=== PATIENT | female | born 1965 | race African-American/Black ===

== ENCOUNTER 2022-12-31 09:37 | Inpatient (IN) ==
--- NOTE | 2022-12-31 10:00 | DR.URIAD ---
HPI Time Seen Time Seen by Provider: 12/31/22 09:58 Complaint Chief Complaint Doctors Comments: BROUGHT IN BY EMS WITH C/O SOB. EMS STTED THAT 02 SAT WAS 89 AT THE SCENE AND THEY PUT HER ON 3 LITERS OF O2 AND SAT INCREASED TO 98. ROS Review of Systems Constitutional: Weakness and Other (SHORTNESS OF BREATH) Eyes: No Symptoms Reported ENTM: No Symptoms Reported Respiratoy: Short of Breath Cardiovascular: No Symptoms Reported Gastrointestinal/Abdominal: No Symptoms Reported Genitourinary: No Symptoms Reported Neurological: No Symptoms Reported Musculoskeletal: Other (GENERALYZED WEAKNESS) Integumentary: Other (STASIS DERMATITIS) Hematologic/Lymphatic: No Symptoms Reported Endocrine: No Symptoms Reported PE Vital Signs Vitals: Vital Signs Temperature 98.2 F Pulse Rate 94 Pulse Rate 93 Pulse Rate 95 Pulse Rate 95 Pulse Rate 92 Pulse Rate 97 Pulse Rate 92 Pulse Rate 92 Pulse Rate 96 Pulse Rate 90 Pulse Rate 95 Pulse Rate 92 Pulse Rate 96 Pulse Rate 91 Pulse Rate 93 Pulse Rate 94 Pulse Rate 93 Pulse Rate 96 Pulse Rate 93 Pulse Rate 93 Pulse Rate 93 Pulse Rate 94 Pulse Rate 100 Respiratory Rate 18 Respiratory Rate 14 Respiratory Rate 7 Respiratory Rate 12 Respiratory Rate 0 Respiratory Rate 13 Respiratory Rate 20 Respiratory Rate 16 Respiratory Rate 24 Respiratory Rate 10 Respiratory Rate 13 Respiratory Rate 10 Respiratory Rate 17 Respiratory Rate 6 Respiratory Rate 0 Respiratory Rate 0 Respiratory Rate 15 Respiratory Rate 16 Respiratory Rate 18 Respiratory Rate 19 Respiratory Rate 24 Blood Pressure 144/86 Blood Pressure 149/71 Blood Pressure 156/84 Blood Pressure 132/87 Blood Pressure 162/80 Blood Pressure 157/98 O2 Sat by Pulse Oximetry 98 O2 Sat by Pulse Oximetry 96 O2 Sat by Pulse Oximetry 100 O2 Sat by Pulse Oximetry 100 O2 Sat by Pulse Oximetry 100 O2 Sat by Pulse Oximetry 100 O2 Sat by Pulse Oximetry 100 O2 Sat by Pulse Oximetry 100 O2 Sat by Pulse Oximetry 97 O2 Sat by Pulse Oximetry 100 O2 Sat by Pulse Oximetry 97 O2 Sat by Pulse Oximetry 100 O2 Sat by Pulse Oximetry 92 O2 Sat by Pulse Oximetry 95 O2 Sat by Pulse Oximetry 90 O2 Sat by Pulse Oximetry 76 O2 Sat by Pulse Oximetry 90 General Limitations: Physical Limitation (POOR AMBULATION DUE TO FATIGUE) General Appearance: In Distress (MODERATE DISTRESS) Head Head Exam: Normal Inspection Eyes Eye exam: Normal Appearance ENT ENT Exam: Normal Exam and Normal Oropharynx External Ear Exam: Normal External Inspection TM/Canal Exam: Bilateral: Normal Nose Exam: Normal Nose Exam Nasal Speculum Exam: Bilateral: Normal Mouth Exam: Normal Inspection Throat Exam: Normal Inspection Neck Neck Exam: Normal Inspection Chest Chest Inspection: Normal Inspection Respiratory Respiratory Exam: Normal Lung Sounds Bilat Respiratory Exam: Bilateral: Clear to Auscultation Cardiovascular Cardiovascular Exam: Regular Rate and Normal Rhythm Abdominal Exam Abdominal Exam: Normal Inspection and Normal Bowel Sounds Extremeties Extremities Exam: Normal Inspection and Full ROM Back Back Exam: Normal Inspection Neurologic Neurological Exam: Alert Psychiatric Psychiatric Exam: Depressed Skin Skin Exam: Other (STASIS DERMATITIS) MDM Differential Diagnosis Differential Diagnosis: Pneumonia and URI COURSE Treatment Treatment: PQTINT REMQINED RELQTIVELY STABLE DURING ER EVALUATION. HAD AFIB ON EKG,CARDIAC ENZYMES WERE NORMAL,SLIGHTLY ELEVATED BNP OF 210 AND WAS POSITIVE FOR COVID. CHEST XRAY SHOED CRDIOMEGALY AND POSSIBLE EVOLVING RML PNEUMONIA. CT OF ABDOMEN AND PELVIS SHOWED OVERAL VOLUME OVERLOAD INCLUDING ASCITES,PLEURAL EFFUSIONS, AND DIFFUSE ANASARCA. POSSIBLE EVOLVING RML PNEUMONIA AND UMBILCAL HERNIA WITHOUT OBSTRUCTIONS. SPOKE TO DR BALDWIN AT 1435 AND HE STATED TO START PATIENT ON REMDESIVIR,GENT NEBS AND FUROSEMIDE 40MG IV Q 12 X 2. PATIENT WAS NOTIFIED OF THE PLAN TO ADMIT AND WASAGREABLE TO THE ADMISSION. ROR Labs Reviewed Laboratory Results Reviewed?: Yes 12/31/22 10:18 12/31/22 10:18 Laboratory: WBC 5.2 X10^3/uL (3.6-10.0) 12/31/22 10:18 RBC 4.68 X10^6/uL (3.5-5.4) 12/31/22 10:18 Hgb 12.9 g/dL (12.0-16.0) 12/31/22 10:18 Hct 39.2 % (36.0-47.0) 12/31/22 10:18 MCV 83.8 fL (80.0-100.0) 12/31/22 10:18 MCH 27.6 pg (27.0-34.0) 12/31/22 10:18 MCHC 32.9 g/dL (33.0-35.0) L 12/31/22 10:18 RDW 19.7 % (11.6-16.5) H 12/31/22 10:18 Plt Count 101 X10^3/uL (150.0-450.0) L 12/31/22 10:18 MPV 10.6 fL (7.4-11.0) 12/31/22 10:18 Neut % (Auto) 76.0 % (42.0-75.0) H 12/31/22 10:18 Lymph % (Auto) 12.0 % (21.0-51.0) L 12/31/22 10:18 [place] % (Auto) 6.9 % (0.0-13.0) 12/31/22 10:18 Eos % (Auto) 1.2 % (0.9-2.9) 12/31/22 10:18 Baso % (Auto) 3.9 % (0.2-1.0) H 12/31/22 10:18 Neut # (Auto) 4.0 x10^3/uL (2.2-4.8) 12/31/22 10:18 Lymph # (Auto) 0.6 X10^3/uL (1.3-2.9) L 12/31/22 10:18 [place] # (Auto) 0.4 x10^3/uL (0.3-0.8) 12/31/22 10:18 Eos # (Auto) 0.1 x10^3/uL (0.0-0.2) 12/31/22 10:18 Baso # (Auto) 0.2 X10^3/uL (0.0-0.1) H 12/31/22 10:18 Absolute Nucleated RBC 0.3 /100WBC 12/31/22 10:18 Sodium 139 mmol/L (136-145) 12/31/22 10:18 Corrected Sodium TNP 12/31/22 10:18 Potassium 4.3 mmol/L (3.5-5.1) 12/31/22 10:18 Chloride 102 mmol/L (98-107) 12/31/22 10:18 Carbon Dioxide 28.1 mmol/L (21-32) 12/31/22 10:18 BUN 9 mg/dL (7-18) 12/31/22 10:18 Creatinine 1.12 mg/dL (0.55-1.02) H 12/31/22 10:18 Est GFR (MDRD) Af Amer > 60 (>60) 12/31/22 10:18 Est GFR (MDRD) Non-Af 53 (>60) L 12/31/22 10:18 Glucose 96 mg/dL (65-99) 12/31/22 10:18 Calcium 9.0 mg/dL (8.5-10.1) 12/31/22 10:18 Corrected Calcium 10.0 mg/dL (8.5-10.1) 12/31/22 10:18 Total Bilirubin 2.30 mg/dL (0.2-1.0) H 12/31/22 10:18 AST 27 Units/L (15-37) 12/31/22 10:18 ALT 12 Units/L (12-78) 12/31/22 10:18 Alkaline Phosphatase 147 Units/L (46-116) H 12/31/22 10:18 Troponin I High Sens 13.2 ng/L (4.0-60.0) 12/31/22 10:18 B-Natriuretic Peptide 210 pg/mL (0-79) H 12/31/22 10:18 Total Protein 7.1 g/dL (6.4-8.2) 12/31/22 10:18 Albumin 2.8 g/dL (3.4-5.0) L 12/31/22 10:18 Globulin 4.3 g/dL (2.5-4.5) 12/31/22 10:18 Albumin/Globulin Ratio 0.7 Ratio (1.1-2.1) L 12/31/22 10:18 Amylase 25 Units/L (25-115) 12/31/22 10:18 Lipase 76 Units/L (73-393) 12/31/22 10:18 SARS-CoV-2 (PCR) Positive (NEGATIVE) A 12/31/22 10:29 Influenza Type A (PCR) Negative (NEGATIVE) 12/31/22 10:29 Influenza Type B (PCR) Negative (NEGATIVE) 12/31/22 10:29 RSV (PCR) Negative (NEGATIVE) 12/31/22 10:29 Opioid Opioid Risk Tool Total: 0 Total Score Risk Category: Low Risk Copyright: Luis Alfredo ANDUJAR predicting aberrant behaviors Discharge Plan Diagnosis Discharge Problem: COVID-19, Mild congestive heart failure, A-fib, Hypoxia Discharge Plan Patient Disposition: ADMITTED INPATIENT Condition: Stable Prescriptions: No Action spironolactone 25 mg tablet 25 mg PO QDAY Eliquis 5 mg tablet 5 mg PO BID Entresto 49-51 mg Tablet 1 tab PO BID Health Concerns: Post Hospitalization: new medications and changes needed to prevent readmission or further decline. Pt educated and given instructions on all concerns. Plan of Treatment: Continue with present treatment and follow up plan. Pt is to keep follow up appointment as instructed and take medications as ordered. Orders to Discharge Patient Discharge Orders: Transfer (Routine); Ordered 12/31/22 Ordered By: Carter White Follow ups/Referrals Follow ups/Referrals: NFD,None [STAFF PHYSICIAN] - 3 days Instructions Stand Alone Forms: Post Hospital Follow Up Care
[2022-12-31 10:52] LABS: BASOPHILS # (AUTO) 0.2 X10^3/uL (0.0-0.1); BASOPHILS % (AUTO) 3.9 % (0.2-1.0); EOSINOPHILS # (AUTO) 0.1 x10^3/uL (0.0-0.2); EOSINOPHILS % (AUTO) 1.2 % (0.9-2.9); HEMATOCRIT 39.2 % (36.0-47.0); HEMOGLOBIN 12.9 g/dL (12.0-16.0); LYMPHOCYTES # (AUTO) 0.6 X10^3/uL (1.3-2.9); MEAN CORPUSCULAR HEMOGLOBIN 27.6 pg (27.0-34.0); MEAN CORPUSCULAR HGB CONC 32.9 g/dL (33.0-35.0); MEAN CORPUSCULAR VOLUME 83.8 fL (80.0-100.0); MEAN PLATELET VOLUME 10.6 fL (7.4-11.0); MONOCYTES # (AUTO) 0.4 x10^3/uL (0.3-0.8); MONOCYTES % (AUTO) 6.9 % (0.0-13.0); PLATELET COUNT 101 X10^3/uL (150.0-450.0); RED BLOOD COUNT 4.68 X10^6/uL (3.5-5.4); RED CELL DISTRIBUTION WIDTH 19.7 % (11.6-16.5); WHITE BLOOD COUNT 5.2 X10^3/uL (3.6-10.0)
--- NOTE | 2022-12-31 10:52 | EKG ---
Test Reason : SOB, abdominal distension Blood Pressure : */* mmHG Vent. Rate : 92 BPM Atrial Rate : * BPM P-R Int : * ms QRS Dur : 98 ms QT Int : 348 ms P-R-T Axes : * -17 135 degrees QTc Int : 430 ms Atrial fibrillation Low voltage QRS Possible Anterolateral infarct , age undetermined Abnormal ECG No previous ECGs available Confirmed by Blas Hines ([id number]) on 01/03/2023 8:04:00 AM Referred By: Confirmed By: Blas Hines
[2022-12-31 11:04] LABS: ALANINE AMINOTRANSFERASE 12 Units/L (12-78); ALBUMIN 2.8 g/dL (3.4-5.0); ALKALINE PHOSPHATASE 147 Units/L (46-116); AMYLASE 25 Units/L (25-115); ASPARTATE AMINO TRANSFERASE 27 Units/L (15-37); BLOOD UREA NITROGEN 9 mg/dL (7-18); CARBON DIOXIDE 28.1 mmol/L (21-32); CHLORIDE 102 mmol/L (98-107); CREATININE 1.12 mg/dL (0.55-1.02); GLUCOSE 96 mg/dL (65-99); LIPASE 76 Units/L (73-393); POTASSIUM 4.3 mmol/L (3.5-5.1); SODIUM 139 mmol/L (136-145); TOTAL PROTEIN 7.1 g/dL (6.4-8.2); eGFR NON BLACK RACES 53 (>60)
--- NOTE | 2022-12-31 11:48 | CT ---
EXAM:ABDOMEN/PELVIS W/O CONHISTORY:Abdominal distentionCOMPARISON:None available.TECHNIQUE:Multiple non contrast axial images of the abdomen and pelvis were obtained from the lung bases to the pubic symphysis.. Dose reduction techniques including Automated Exposure Control (AEC) and adjustment of mA and kV were utlized.FINDINGS:The sensitivity for focal lesion detection within the solid abdominal viscera is diminished without the use of IV contrast.Cardiomegaly. There is no pericardial effusion. Loculated large right pleural effusion with adjacent atelectasis. Trace left pleural effusion. Air bronchograms notable on the right. Diffuse anasarca.Liver and spleen are normal in size, contour. No focal lesions. No ductal dilitation. Gallbladder is present. No calcified gallstones or gallbladder wall thickening. The pancreas is unremarkable. Adrenal glands are normal. Kidneys are without hydronephrosis or nephrolithiasis.No bowel obstruction or inflammation. Umbilical hernia containing bowel without evidence of obstruction. No abnormal appearing mesenteric or retroperitoneal lymph nodes. Moderate volume ascites.The bladder is normal in appearance. Uterus present. No free fluid or abnormal pelvic lymph nodes.No aggressive osseous lesions.IMPRESSION:1.Findings of overall volume load including ascites, pleural effusions and diffuse anasarca as noted above. Correlate clinically.2. Possible developing right middle lobe pneumonia.3. Umbilical hernia containing bowel without evidence of obstruction.THIS IS AN ELECTRONICALLY VERIFIED FINAL [id number]/31/2022 11:45 AM - Electronically signed by Luis Mckeon MD
--- NOTE | 2022-12-31 13:24 | RAD ---
EXAM:Portable AP chestHISTORY:SOBCOMPARISON:None availableFINDINGS:The heart is enlarged. Parenchymal density consistent with infiltrate or atelectasis and possible fluid noted at right base. Evaluation is significantly limited by patient habitus and nonstandard portable technical factors.IMPRESSION:Cardiomegaly with probable right basal atelectasis and possible fluid. See above technical reservation. Repeat/follow-up recommended, standard PA and lateral projections if possible.THIS IS AN ELECTRONICALLY VERIFIED FINAL [id number]/31/2022 1:20 PM - Electronically signed by Mitch Aranda MD
[2022-12-31 16:02] VITALS: BMI 58.6
[2022-12-31] MEDS ORDERED: REMDESIVIR 200 MG in NS 100 ML IV 140 ML IV ONE (16:20)
[2022-12-31] MEDS ORDERED: XOPENEX 1.25 MG/3 ML NEBULE NEB SCH (17:00)
[2022-12-31] MEDS ORDERED: XOPENEX 1.25 MG/3 ML NEBULE NEB ONE (17:05)
[2022-12-31] MEDS ORDERED: NS 250 ML IV 250 ML IV ONE (17:19)
[2022-12-31] MEDS: LASIX IVP SCH (17:25)
[2022-12-31] MEDS: XOPENEX 1.25 MG/3 ML NEBULE NEB SCH ×2 (17:33→21:05)
[2022-12-31] MEDS: ENTRESTO 49/51 MG TABLET PO SCH (21:19)
[2022-12-31] MEDS: ELIQUIS PO SCH (21:19)
[2022-12-31] MEDS: ULTRAM PO PRN (23:15)
--- NOTE | 2023-01-01 06:02 | RAD ---
HISTORYSOB HX: CVA, DMSTUDYCHEST, 1 [id number]/2023FINDINGSThe trachea is midline. The cardiac silhouette is mildly enlarged.. Right basilar atelectasis, consolidation and/or small effusion. The bony thorax is unremarkable.IMPRESSIONMild cardiomegaly.Right basilar atelectasis and/or consolidation with small pleural effusion..Electronically signed by: Jose Miguel Patel (Jan 01, 2023 06:01:36)
[2023-01-01 07:33] LABS: ABG BASE EXCESS 7.6 mmol/L (-2.0-2.0)
[2023-01-01 07:34] LABS: ABG HCO3 33.2 mmol/L (22-26)
[2023-01-01 07:50] LABS: ALANINE AMINOTRANSFERASE 12 Units/L (12-78); ALBUMIN 2.8 g/dL (3.4-5.0); ALKALINE PHOSPHATASE 146 Units/L (46-116); ASPARTATE AMINO TRANSFERASE 20 Units/L (15-37); BLOOD UREA NITROGEN 8 mg/dL (7-18); CALCIUM 8.9 mg/dL (8.5-10.1); CARBON DIOXIDE 30.5 mmol/L (21-32); CHLORIDE 102 mmol/L (98-107); COR CA(FOR HYPOALB) 9.9 mg/dL (8.5-10.1); GLUCOSE 93 mg/dL (65-99); POTASSIUM 3.5 mmol/L (3.5-5.1); SODIUM 140 mmol/L (136-145); TOTAL PROTEIN 7.2 g/dL (6.4-8.2)
[2023-01-01 07:58] LABS: eGFR NON BLACK RACES 45 (>60)
--- NOTE | 2023-01-01 09:04 | DR.H&P ---
H&P - History & Physical for Day of: H&P Date: 12/31/22 - Chief Complaint Chief Complaint: SHORNTESS OF BREATH, WEAKNESS - History of Present Illness History of Present Illness: IS A 57 YEAR OLD FEMALE, PATIENT OF [facility]. SHE HAS A PMH OF CHF, CVA, OSTEOARTHRITIS, HTN, BIPOLAR DISORDER. SHE IS NOT KNOWN TO US. SHE PRESENTED TO THE ER VIA EMS WITH COMPLAINTS OF SHORTNESS OF BREATH AND WEAKNESS. HER SYMPTOMS APPARENTLY STARTED TWO DAYS PRIOR. EMS REPORTED THAT ON ARRIVAL TO THE SCENE, HER OXYGEN SATURATIONS WERE 88-89% ON ROOM AIR. THEY PLACED HER ON OXYGEN VIA NASAL CANNULA AT 2 LPM. SATURATIONS INCREASED TO 98%. ON ARRIVAL TO THE HOSPITAL, PATIENT WAS NOTED TO HAVE DIMINISHED LUNG SOUNDS THROUGHOUT. SHE WAS ALSO NOTED TO HAVE ABDOMINAL DISTENTION AND GENERALIZED SWELLING. HER VITALS WERE: 98.2-100-24-90%(NC AT 2 LPM)-157/98. LABS WERE OBTAINED. WBC 5.2, RBC 4368, HGB 12.9, HCT 39.2, PLT COUNT 101, SODIUM 139, POTASSIUM 4.3, CHLORIDE 102, BUN 9, CREATININE 1.12, GLUCOSE 96, CALCIUM 9.0, TOTAL BILI 2.30, AST 27, ALT 12, ALK PHOS 147, BNP 210, TOTAL PROTEIN 7.1, ALBUMIN 2.8. COVID-19 WAS POSITIVE. INFLUENZA AND RSV NEGATIVE. AN ABDOMEN/PELVIS CT WITHOUT CONTRAST WAS OBTAINED AND REVEALED: 1.Findings of overall volume load including ascites, pleural effusions and diffuse anasarca as noted above. Correlate clinically. 2. Possible developing right middle lobe pneumonia. 3. Umbilical hernia containing bowel without evidence of obstruction. A CHEST XRAY WAS OBTAINED AND REVEALED: The heart is enlarged. Parenchymal density consistent with infiltrate or atelectasis and possible fluid noted at right base. EKG REVEALED: ATRIAL FIBRILLATION WITH HR 92 BPM. IN THE ER, PATIENT WAS GIVEN REMDESIVIR 200MG IV X 1 DOSE. SHE WAS ADMITTED TO THE HOSPITAL OBSERVATION STATUS FOR FURTHER EVALUATION AND TREATMENT OF PNEUMONIA DUE TO COVID-19, HYPOXIA, SHORTNESS OF BREATH, ATRIAL FIBRILLATION, CHF. SHE WAS STARTED ON LEVAQUIN 500MG IV DAILY, REMDESIVIR 100MG DAILY, SOLU- MEDROL 80MG IV Q8H, LASIX 40MG IV Q12H, XOPENEX NEBS QID, ELIQUIS 5MG BID, ALDACTONE 25MG DAILY, ULTRAM 50MG Q4H PRN, AND ENTRESTO 49-51MG BID. OTHERWISE, WE PLAN TO FOLLOW UP WITH AM LABS AND CHEST XRAY AND CONTINUE TO MONITOR. TIME SPENT ON CLINICAL ASSESSMENT, REVIEWING LABS AND IMAGING, DECISION MAKING, AND DOCUMENTATION GREATER THAN 75 MINUTES. - Past Medical History Past Medical History: CHF, Coronary Artery Disease, Diabetes, Dyslipidemia, Hypertension, Renal Disease - Family History Family Medical History: Diabetes Mellitus, Cancer, MA, Hypertension - Social History Does patient currently use any type of tobacco product: No Have you used tobacco products in the last 12 months: No Type of Tobacco Use: None How many years tobacco product used: 10 Does any household member use tobacco: No Alcohol Use: None Drug Use: None - Review of Systems Constitutional: Weakness. denies: Fever, Chills Eyes: No Symptoms Reported ENT: No Symptoms Reported Respiratory: See HPI, Shortness of Breath, SOB with Excertion Cardiovascular: Edema (GENERALIZED SWELLING ) Gastrointestinal: No Symptoms Reported Genitourinary: No Symptoms Reported Musculoskeletal: No Symptoms Reported Skin: No Symptoms Reported Neurological: Weakness - Physical Exam Vital Signs: Vital Signs Temperature 98.1 F Temperature 97.9 F Pulse Rate [Brachial] 94 Pulse Rate [Brachial] 91 Respiratory Rate 18 Respiratory Rate 20 Blood Pressure [Right Arm] 119/71 Blood Pressure [Right Arm] 96/53 O2 Sat by Pulse Oximetry 99 O2 Sat by Pulse Oximetry 99 Oriented: Normal Eyes: Normal Ear: Normal Nose: Normal Throat: Normal Respiratory: Diminished Throughout Cardiovascular: Edema (GENERALIZED SWELLING ) : Normal Auscultation: Bowel Sounds: Normal Palpation: Normal Tenderness: Normal, Other (ABDOMINAL DISTENTION ) Skin: Normal Musculoskeletal: Normal Psychiatric: Normal Mood Description: Calm Affect: Normal Speech Pattern: Clear - Assessment/Plan (1) Pneumonia due to COVID-19 virus Status: Acute Plan: ADMIT, LEVAQUIN 500MG IV DAILY, REMDESIVIR 100MG DAILY, SOLU-MEDROL 80MG IV Q8H, LASIX 40MG IV Q12H, XOPENEX NEBS QID, ELIQUIS 5MG BID, ALDACTONE 25MG DAILY, ULTRAM 50MG Q4H PRN, AND ENTRESTO 49-51MG BID. (2) CHF (congestive heart failure) Qualifiers: Heart failure type: unspecified Heart failure chronicity: acute on chronic Qualified Code(s): I50.9 - Heart failure, unspecified Status: Acute (3) A-fib Qualifiers: Atrial fibrillation type: unspecified Qualified Code(s): I48.91 - Unspecified atrial fibrillation Status: Acute (4) Hypoxia Status: Acute (5) Anasarca Status: Acute (6) Ascites Qualifiers: Ascites type: other type Qualified Code(s): R18.8 - Other ascites Status: Acute (7) Shortness of breath Status: Acute (8) Hypertension Qualifiers: Hypertension type: primary hypertension Qualified Code(s): I10 - Essential (primary) hypertension Status: Chronic - Allergies Allergies/Adverse Reactions: Allergies Allergy/AdvReac Type Severity Reaction Status Date / Time No Known Allergies Allergy Verified 12/31/22 15:02 - Medications Home Medications: Home Medications Medication Instructions Recorded Confirmed apixaban 5 mg tablet (Eliquis) 5 mg PO BID 12/31/22 12/31/22 sacubitril 49 mg-valsartan 51 mg 1 tab PO BID 12/31/22 12/31/22 tablet (Entresto) spironolactone 25 mg tablet 25 mg PO QDAY 12/31/22 12/31/22
[2023-01-01 09:07] LABS: BASOPHILS % (AUTO) 0.6 % (0.2-1.0); EOSINOPHILS # (AUTO) 0.1 x10^3/uL (0.0-0.2); EOSINOPHILS % (AUTO) 1.9 % (0.9-2.9); HEMATOCRIT 37.9 % (36.0-47.0); HEMOGLOBIN 12.7 g/dL (12.0-16.0); LYMPHOCYTES # (AUTO) 1.1 X10^3/uL (1.3-2.9); LYMPHOCYTES % (AUTO) 24.5 % (21.0-51.0); MEAN CORPUSCULAR HEMOGLOBIN 27.7 pg (27.0-34.0); MEAN CORPUSCULAR HGB CONC 33.5 g/dL (33.0-35.0); MEAN CORPUSCULAR VOLUME 82.9 fL (80.0-100.0); MEAN PLATELET VOLUME 10.3 fL (7.4-11.0); MONOCYTES # (AUTO) 0.8 x10^3/uL (0.3-0.8); MONOCYTES % (AUTO) 19.1 % (0.0-13.0); NEUTROPHILS # (AUTO) 2.4 x10^3/uL (2.2-4.8); NEUTROPHILS % (AUTO) 53.9 % (42.0-75.0); PLATELET COUNT 97 X10^3/uL (150.0-450.0); RED BLOOD COUNT 4.57 X10^6/uL (3.5-5.4); WHITE BLOOD COUNT 4.4 X10^3/uL (3.6-10.0)
[2023-01-01] MEDS: XOPENEX 1.25 MG/3 ML NEBULE NEB SCH ×4 (09:23→21:10)
[2023-01-01 09:45] LABS: ANISOCYTOSIS SLIGHT; BASOPHILS % (MANUAL) 0 % (0-1); OVALOCYTES SLIGHT; PLATELET MORPHOLOGY COMMENT NORMAL (NORMAL); TARGET CELLS 1+
[2023-01-01] MEDS: ELIQUIS PO SCH ×2 (09:47→21:15)
[2023-01-01] MEDS: LEVAQUIN PREMIX IV 500 MG 500 MG/100 ML BAG IV SCH (09:47)
[2023-01-01] MEDS: ENTRESTO 49/51 MG TABLET PO SCH ×2 (09:47→21:15)
[2023-01-01] MEDS: SOLU-Medrol 40 MG VIAL IVP SCH ×3 (09:47→21:15)
[2023-01-01] MEDS: LASIX IVP SCH ×2 (09:47→17:18)
[2023-01-01] MEDS: ALDACTONE TAB 25 MG PO SCH (09:47)
[2023-01-01] MEDS ORDERED: NS 500 ML IV 0 ML IV ONE (10:54)
[2023-01-01] MEDS: ULTRAM PO PRN (21:15)
[2023-01-02 05:17] LABS: BASOPHILS % (AUTO) 0.7 % (0.2-1.0); HEMATOCRIT 37.4 % (36.0-47.0); HEMOGLOBIN 12.4 g/dL (12.0-16.0); LYMPHOCYTES # (AUTO) 0.4 X10^3/uL (1.3-2.9); LYMPHOCYTES % (AUTO) 8.6 % (21.0-51.0); MEAN CORPUSCULAR HEMOGLOBIN 27.7 pg (27.0-34.0); MEAN CORPUSCULAR HGB CONC 33.1 g/dL (33.0-35.0); MEAN CORPUSCULAR VOLUME 83.5 fL (80.0-100.0); MEAN PLATELET VOLUME 10.5 fL (7.4-11.0); MONOCYTES # (AUTO) 0.1 x10^3/uL (0.3-0.8); MONOCYTES % (AUTO) 1.5 % (0.0-13.0); NEUTROPHILS % (AUTO) 89.2 % (42.0-75.0); PLATELET COUNT 105 X10^3/uL (150.0-450.0); RED BLOOD COUNT 4.48 X10^6/uL (3.5-5.4); RED CELL DISTRIBUTION WIDTH 19.9 % (11.6-16.5); WHITE BLOOD COUNT 4.4 X10^3/uL (3.6-10.0)
[2023-01-02 05:31] LABS: ALBUMIN 2.9 g/dL (3.4-5.0); CALCIUM 9.1 mg/dL (8.5-10.1); CARBON DIOXIDE 36.3 mmol/L (21-32); CREATININE 1.36 mg/dL (0.55-1.02); POTASSIUM 3.5 mmol/L (3.5-5.1); TOTAL PROTEIN 7.7 g/dL (6.4-8.2)
[2023-01-02] MEDS: SOLU-Medrol 40 MG VIAL IVP SCH ×3 (05:36→21:39)
[2023-01-02 05:53] LABS: ANISOCYTOSIS SLIGHT; GIANT PLATELET FEW; OVALOCYTES PRESENT; PLATELET MORPHOLOGY COMMENT ABNORMAL (NORMAL); TARGET CELLS PRESENT
[2023-01-02] MEDS ORDERED: CONSULT PHARMACY - POTASSIUM & MAGNESIUM XX SCH (06:00)
--- NOTE | 2023-01-02 07:39 | RAD ---
EXAM:AP chestHISTORY:SOBCOMPARISON:January 01, 2023FINDINGS:Similar cardiomegaly and airspace involvement in the right lower lung as before. No new abnormality is noted. Radiographic detail is significantly limited by nonstandard technical factors and patient habitus.IMPRESSION:No change.THIS IS AN ELECTRONICALLY VERIFIED FINAL [id number]/02/2023 7:36 AM - Electronically signed by Mitch Aranda MD
[2023-01-02] MEDS ORDERED: K-DUR TAB 20 MEQ PO SCH (09:00)
[2023-01-02] MEDS: XOPENEX 1.25 MG/3 ML NEBULE NEB SCH ×4 (09:25→20:39)
[2023-01-02] MEDS ORDERED: OMNIPAQUE 350 mg/mL 100 mL BTL 100 ML ONE (09:37)
[2023-01-02] MEDS ORDERED: OMNIPAQUE 350 mg/mL 50 mL BTL 50 ML ONE (09:52)
[2023-01-02] MEDS: ELIQUIS PO SCH ×2 (10:09→21:39)
[2023-01-02] MEDS: ALDACTONE TAB 25 MG PO SCH (10:09)
[2023-01-02] MEDS: ENTRESTO 49/51 MG TABLET PO SCH ×2 (10:09→21:39)
[2023-01-02] MEDS: LEVAQUIN PREMIX IV 500 MG 500 MG/100 ML BAG IV SCH (10:09)
[2023-01-02] MEDS: MAG-OX TAB PO SCH ×4 (10:09→12:53)
[2023-01-02] MEDS: LASIX IVP SCH ×2 (10:09→18:26)
[2023-01-02] MEDS: REMDESIVIR 100 MG in NS 250 ML IV 250 ML IV SCH (10:09)
[2023-01-02] MEDS ORDERED: PHARMACY CONSULT - LOVENOX XX SCH (11:00)
[2023-01-02] MEDS: ULTRAM PO PRN (21:39)
[2023-01-03] MEDS: SOLU-Medrol 40 MG VIAL IVP SCH ×2 (05:31→13:30)
[2023-01-03 05:56] LABS: BASOPHILS % (AUTO) 0.3 % (0.2-1.0); HEMATOCRIT 37.3 % (36.0-47.0); HEMOGLOBIN 12.5 g/dL (12.0-16.0); LYMPHOCYTES # (AUTO) 0.4 X10^3/uL (1.3-2.9); MEAN CORPUSCULAR HEMOGLOBIN 27.7 pg (27.0-34.0); MEAN CORPUSCULAR HGB CONC 33.4 g/dL (33.0-35.0); MEAN PLATELET VOLUME 10.1 fL (7.4-11.0); MONOCYTES # (AUTO) 0.3 x10^3/uL (0.3-0.8); MONOCYTES % (AUTO) 3.9 % (0.0-13.0); NEUTROPHILS % (AUTO) 90.8 % (42.0-75.0); PLATELET COUNT 116 X10^3/uL (150.0-450.0); RED BLOOD COUNT 4.49 X10^6/uL (3.5-5.4); RED CELL DISTRIBUTION WIDTH 19.6 % (11.6-16.5); WHITE BLOOD COUNT 8.8 X10^3/uL (3.6-10.0)
[2023-01-03 06:07] LABS: ALBUMIN 3.1 g/dL (3.4-5.0); CALCIUM 9.5 mg/dL (8.5-10.1); CARBON DIOXIDE 35.9 mmol/L (21-32); COR CA(FOR HYPOALB) 10.2 mg/dL (8.5-10.1); CREATININE 1.42 mg/dL (0.55-1.02); MAGNESIUM 1.7 mg/dL (2.0-2.9); POTASSIUM 3.6 mmol/L (3.5-5.1); TOTAL PROTEIN 8.2 g/dL (6.4-8.2)
[2023-01-03 06:38] LABS: BAND NEUTROPHILS % 1 % (0-10); PLATELET MORPHOLOGY COMMENT NORMAL (NORMAL)
[2023-01-03 06:43] LABS: ANISOCYTOSIS SLIGHT
[2023-01-03] MEDS ORDERED: CONSULT PHARMACY - POTASSIUM & MAGNESIUM XX SCH (07:00)
[2023-01-03] MEDS ORDERED: K-DUR TAB 20 MEQ PO SCH (09:00)
[2023-01-03] MEDS: ELIQUIS PO SCH (09:11)
[2023-01-03] MEDS: ALDACTONE TAB 25 MG PO SCH (09:11)
[2023-01-03] MEDS: ENTRESTO 49/51 MG TABLET PO SCH (09:11)
[2023-01-03] MEDS: REMDESIVIR 100 MG in NS 250 ML IV 250 ML IV SCH (09:12)
[2023-01-03] MEDS: LASIX IVP SCH (09:12)
[2023-01-03] MEDS: MAG-OX TAB PO SCH ×2 (09:12→11:47)
[2023-01-03] MEDS: LEVAQUIN PREMIX IV 500 MG 500 MG/100 ML BAG IV SCH (09:12)
[2023-01-03] MEDS: XOPENEX 1.25 MG/3 ML NEBULE NEB SCH (09:31)
[2023-01-03] MEDS: REMDESIVIR 100 MG in NS 250 ML IV 250 ML IV ONE ×2 (10:45→13:29)
--- NOTE | 2023-01-03 10:49 | PCM.PROG ---
Progress Note - Progress Note for Day of Date of Exam: 01/02/23 - Subjective Subjective: IS CURRENTLY INPATIENT STATUS FOR TREATMENT OF PNEUMONIA DUE TO COVID-19, CHF, ATRIAL FIBRILLATION, HYPOXIA, ANASARCA, AND ASCITES. SHE HAS A PMH OF CHF, CVA, OSTEOARTHRITIS, HTN, BIPOLAR DISORDER. TODAY, SHE IS ALERT AND ORIENTED, LYING IN BED ON MORNING ROUNDS. SHE HAS HAD AN UNEVENTFUL NIGHT. SHE CONTINUES TO COMPLAIN OF SHORTNESS OF BREATH AND A NON-PRODUCTIVE COUGH THIS MORNING. SHE DOES ADMIT TO SLIGHT IMPROVEMENT IN SYMTPOMS SINCE ADMISSION. ON EXAMINATION, HEART IS REGULAR IN RATE AND RHYTHM. BILATERAL LUNGS ARE NOTED WITH DIMINISHED LUNG SOUNDS THROUGHOUT. ABDOMEN IS ROUND, SOFT, AND NON-TENDER WITH NORMAL BOWEL SOUNDS NOTED IN ALL QUADRANTS. GOOD RANGE OF MOTION NOTED TO UPPER AND LOWER EXTREMITIES. 1+ EDEMA NOTED TO LOWER EXTREMITIES. HER VITALS THIS MORNING WERE: 97.7-90-24-92%-144/93. LABS WERE OBTAINED. WBC 4.4, RBC 4.48, HGB 12.4, HCT 37.4, PLT COUNT 105, D-DIMER 4.53, SODIUM 140, POTASSIUM 3.6, CHLORIDE 100, BUN 13, CREATININE 1.42, GLUCOSE 136, MAGNESIUM 1.7, TOTAL BILI 1.30, AST 21, ALT 18, ALK PHOS 152, CRP 18.20, BNP 735, TOTAL PROTEIN 8.2, ALBUMIN 3.1. SHE IS CURRENTLY RECEIVING LEVAQUIN 500MG IV DAILY, REMDESIVIR 100MG DAILY, SOLU-MEDROL 80MG IV Q8H, LASIX 40MG IV Q12H, XOPENEX NEBS QID, ELIQUIS 5MG BID, ALDACTONE 25MG DAILY, ULTRAM 50MG Q4H PRN, AND ENTRESTO 49-51MG BID. WE ATTEMPTED TO DO A CHEST CTA THIS MORNING TO RULE OUT A PE, HOWEVER, WHEN PATIENT GOT DOWN TO THE CT ROOM, SHE ADVISED THEM THAT SHE WAS ALLERGIC TO SHELLFISH. SHE DID NOT MENTION THIS WHEN PREVIOUSLY ASKED ABOUT ALLERGIES. WE WILL HOLD OFF ON THE CTA. SHE IS ALREADY TAKING ELIQUIS. WE WILL CONTINUE WITH CURRENT PLAN OF CARE TODAY. OTHERWISE, WE WILL FOLLOW UP WITH AM LABS AND CONTINUE TO MONITOR. TIME SPENT ON CLINICAL ASSESSMENT, REVIEWING LABS AND IMAGING, DECISION MAKING, AND DOCUMENTATION GREATER THAN 45 MINUTES. - Past Medical Family Social History Past Med/Fam/Surg Hx: No changes since H&P Allergies: Allergies shrimp Allergy (Verified 01/02/23 11:24) - Vital Signs and I&O's Vital Signs: Vital Signs Temperature 98.2 F Pulse Rate [Brachial] 97 Respiratory Rate 18 Blood Pressure [Right Arm] 151/97 O2 Sat by Pulse Oximetry 100 Intake and Output: Intake & Output 12/31/22 01/01/23 01/02/23 01/03/23 11:59 11:59 11:59 11:59 Intake Total 240 / 240 1022 / 1022 1060 / 1060 Balance 240 / 240 1022 / 1022 1060 / 1060 - Physical Exam Oriented: Normal Eyes: Normal Ear: Normal Nose: Normal Throat: Normal Respiratory: Diminished Cardiovascular: Edema (GENERALIZED SWELLING ) : Normal Auscultation: Bowel Sounds: Normal Palpation: Normal Tenderness: Normal, Other (ABDOMINAL DISTENTION ) Skin: Normal Musculoskeletal: Normal Psychiatric: Normal Mood Description: Calm Affect: Normal Speech Pattern: Clear - Laboratory and Diagnostics Result Diagrams: 01/03/23 05:25 01/03/23 05:25 Labs: Laboratory WBC 8.8 X10^3/uL (3.6-10.0) 01/03/23 05:25 RBC 4.49 X10^6/uL (3.5-5.4) 01/03/23 05:25 Hgb 12.5 g/dL (12.0-16.0) 01/03/23 05:25 Hct 37.3 % (36.0-47.0) 01/03/23 05:25 MCV 83.0 fL (80.0-100.0) 01/03/23 05:25 MCH 27.7 pg (27.0-34.0) 01/03/23 05:25 MCHC 33.4 g/dL (33.0-35.0) 01/03/23 05:25 RDW 19.6 % (11.6-16.5) H 01/03/23 05:25 Plt Count 116 X10^3/uL (150.0-450.0) L 01/03/23 05:25 Plt Count Comment Decreased (ADEQUATE) A 01/03/23 05:25 MPV 10.1 fL (7.4-11.0) 01/03/23 05:25 Neut % (Auto) 90.8 % (42.0-75.0) H 01/03/23 05:25 Lymph % (Auto) 5.0 % (21.0-51.0) L 01/03/23 05:25 [place] % (Auto) 3.9 % (0.0-13.0) 01/03/23 05:25 Eos % (Auto) 0.0 % (0.9-2.9) L 01/03/23 05:25 Baso % (Auto) 0.3 % (0.2-1.0) 01/03/23 05:25 Neut # (Auto) 8.0 x10^3/uL (2.2-4.8) H 01/03/23 05:25 Lymph # (Auto) 0.4 X10^3/uL (1.3-2.9) L 01/03/23 05:25 [place] # (Auto) 0.3 x10^3/uL (0.3-0.8) 01/03/23 05:25 Eos # (Auto) 0.0 x10^3/uL (0.0-0.2) 01/03/23 05:25 Baso # (Auto) 0.0 X10^3/uL (0.0-0.1) 01/03/23 05:25 Absolute Nucleated RBC 0.0 /100WBC 01/03/23 05:25 Total Counted 100 01/03/23 05:25 Neutrophils % (Manual) 93 % (39-76) H 01/03/23 05:25 Band Neutrophils % 1 % (0-10) 01/03/23 05:25 Lymphocytes % (Manual) 3 % (13-43) L 01/03/23 05:25 Monocytes % (Manual) 3 % (4-9) L 01/03/23 05:25 Eosinophils % (Manual) 1 % (0-6) 01/01/23 07:10 Basophils % (Manual) 0 % (0-1) 01/01/23 07:10 Giant Platelets Few 01/02/23 04:25 Plt Morphology Comment Normal (NORMAL) 01/03/23 05:25 RBC Morphology Abnormal (NORMAL) A 01/03/23 05:25 Anisocytosis Slight A 01/03/23 05:25 Target Cells Present 01/02/23 04:25 Ovalocytes Present 01/02/23 04:25 D-Dimer 4.53 ug/ml (0.0-0.57) H 01/02/23 04:25 Sample Site Lbra 01/01/23 07:29 ABG pH 7.430 (7.35-7.45) 01/01/23 07:29 ABG pCO2 50.0 mmHg (35.0-45.0) H 01/01/23 07:29 ABG pO2 53.0 mmHg (80.0-100.0) L 01/01/23 07:29 ABG HCO3 33.2 mmol/L (22-26) H* 01/01/23 07:29 ABG O2 Saturation 88.0 % (90-100) L 01/01/23 07:29 ABG Base Excess 7.6 mmol/L (-2.0-2.0) H 01/01/23 07:29 Jovany Test N/a 01/01/23 07:29 A-a Gradient 34.0 mmHg 01/01/23 07:29 FiO2 21.0 01/01/23 07:29 Blood Gas Comments Pt derick well elj cdn 01/01/23 07:29 Sodium 140 mmol/L (136-145) 01/03/23 05:25 Corrected Sodium 141 mmol/L (136-145) 01/03/23 05:25 Potassium 3.6 mmol/L (3.5-5.1) 01/03/23 05:25 Chloride 100 mmol/L (98-107) 01/03/23 05:25 Carbon Dioxide 35.9 mmol/L (21-32) H 01/03/23 05:25 BUN 13 mg/dL (7-18) 01/03/23 05:25 Creatinine 1.42 mg/dL (0.55-1.02) H 01/03/23 05:25 Est GFR (MDRD) Af Amer 49 (>60) L 01/03/23 05:25 Est GFR (MDRD) Non-Af 41 (>60) L 01/03/23 05:25 Glucose 136 mg/dL (65-99) H 01/03/23 05:25 Calcium 9.5 mg/dL (8.5-10.1) 01/03/23 05:25 Corrected Calcium 10.2 mg/dL (8.5-10.1) H 01/03/23 05:25 Magnesium 1.7 mg/dL (2.0-2.9) L 01/03/23 05:25 Total Bilirubin 1.30 mg/dL (0.2-1.0) H 01/03/23 05:25 AST 21 Units/L (15-37) 01/03/23 05:25 ALT 18 Units/L (12-78) 01/03/23 05:25 Alkaline Phosphatase 152 Units/L (46-116) H 01/03/23 05:25 Troponin I High Sens 13.2 ng/L (4.0-60.0) 12/31/22 10:18 C-Reactive Protein 18.20 mg/L (0-3.0) H 01/03/23 05:25 B-Natriuretic Peptide 735 pg/mL (0-79) H* 01/03/23 05:25 Total Protein 8.2 g/dL (6.4-8.2) 01/03/23 05:25 Albumin 3.1 g/dL (3.4-5.0) L 01/03/23 05:25 Globulin 5.1 g/dL (2.5-4.5) H 01/03/23 05:25 Albumin/Globulin Ratio 0.6 Ratio (1.1-2.1) L 01/03/23 05:25 Amylase 25 Units/L (25-115) 12/31/22 10:18 Lipase 76 Units/L (73-393) 12/31/22 10:18 SARS-CoV-2 (PCR) Positive (NEGATIVE) A 12/31/22 10:29 Influenza Type A (PCR) Negative (NEGATIVE) 12/31/22 10:29 Influenza Type B (PCR) Negative (NEGATIVE) 12/31/22 10:29 RSV (PCR) Negative (NEGATIVE) 12/31/22 10:29 - Plan (1) Pneumonia due to COVID-19 virus Status: Acute Plan: LEVAQUIN 500MG IV DAILY, REMDESIVIR 100MG DAILY, SOLU-MEDROL 80MG IV Q8H, LASIX 40MG IV Q12H, XOPENEX NEBS QID, ELIQUIS 5MG BID, ALDACTONE 25MG DAILY, ULTRAM 50MG Q4H PRN, AND ENTRESTO 49-51MG BID. (2) CHF (congestive heart failure) Status: Acute Qualifiers: Heart failure type: unspecified Heart failure chronicity: acute on chronic Qualified Code(s): I50.9 - Heart failure, unspecified (3) A-fib Status: Acute Qualifiers: Atrial fibrillation type: unspecified Qualified Code(s): I48.91 - Unspecified atrial fibrillation (4) Hypoxia Status: Acute (5) Anasarca Status: Acute (6) Ascites Status: Acute Qualifiers: Ascites type: other type Qualified Code(s): R18.8 - Other ascites (7) Shortness of breath Status: Acute (8) Hypertension Status: Chronic Qualifiers: Hypertension type: primary hypertension Qualified Code(s): I10 - Essential (primary) hypertension
[2023-01-03 11:18] VITALS: PULSE 95
--- NOTE | 2023-01-03 11:32 | RAD ---
EXAM:CHEST, 1 VIEWHISTORY:COVID +, HYPOXIA, SOB; CHFCOMPARISON:01/02/2023FINDINGS:Abnorma l opacity in the right lung base is probably pneumonia. Findings are not significantly changed from yesterday.There is also volume loss seen as elevation of the right hemidiaphragm, so some of the findings could be due to atelectasis.Probable right pleural effusion.No left effusion or pneumonia.Cardiomegaly is present.The bones are unremarkable.IMPRESSION:1. Unchanged right basilar pneumonia with atelectasis2. Unchanged right effusion3. Stable cardiomegalyTHIS IS AN ELECTRONICALLY VERIFIED FINAL LSDQGN4701/03/2023 11:28 AM - Electronically signed by Sameer Escalante MD
[2023-01-03 12:17] VITALS: BP 147/87; RESP 18; TEMP 97.8; O2SAT 96
--- NOTE | 2023-01-04 12:12 | US ---
EXAM:BREASTHISTORY:PAIN IN BOTH BREAST, NO FEVER, OR REDNESS. R/O ABCESS ; 57-year-old female with complaints of pain in both breast. No fever or redness. Rule out abscess.COMPARISON:None.TECHNIQUE:Multip le [place] scale and color flow images of the bilateral breasts were obtained.FINDINGS:Static images from a limited bilateral ultrasound were obtained.At 9 o'clock 2 cm from the nipple in the right breast superficially there is skin thickening and edema of the tissue with dilated lymphatics. No discrete solid or cystic masses on the visualized images.Static images from 4 o'clock of the left breast 2 cm from the nipple demonstrate skin thickening with edema of the tissue and dilated lymphatics. No discrete cystic or solid mass.IMPRESSION:Skin thickening and edema of the breast tissue at 9 o'clock in the right breast 2 cm from the nipple and 4 o'clock in the left breast 2 cm from the nipple. These findings could be secondary to a systemic cause such as volume overload or congestive heart failure.No findings concerning for abscess on the submitted images.ACR CATEGORY:ACR CATEGORY: 0- Incomplete need additional imaging evaluationMANAGEMENT:Bilateral diagnostic mammogram is needed to further evaluate these findings.THIS IS AN ELECTRONICALLY VERIFIED FINAL [id number]/04/2023 12:07 PM - Electronically signed by Soheila Naranjo MD
== END 2023-01-03 15:20 | disposition home or self-care (01) | DRG 177 ==
LOC: MED/SURG 09:37 → ER 09:37 → MED/SURG 16:56
PROVIDERS: ADMIT Internal Medicine; ATTEND Internal Medicine
DX: R53.1 Weakness; R79.82 Elevated C-reactive protein (CRP); Z73.89 Other problems related to life management difficulty; U07.1 COVID-19; I11.0 Hypertensive heart disease with heart failure; Z79.01 Long term (current) use of anticoagulants; I50.9 Heart failure, unspecified; R18.8 Other ascites; J90 Pleural effusion, not elsewhere classified; R09.02 Hypoxemia; J12.82 Pneumonia due to coronavirus disease 2019; R06.02 Shortness of breath; I48.91 Unspecified atrial fibrillation